=== PATIENT | female | born 1990 | race Caucasian/White ===

== ENCOUNTER 2016-02-15 08:58 | Outpatient (CLI) | payer OTHER ==
--- NOTE | 2016-02-15 09:50 | DIAGNOSTIC IMAGING REPORT ---
PROCEDURE: US ABDOMEN ULTRASOUND-LIMITED INDICATION: CHRONIC HEP C TECHNIQUE: Kaufman scale and color Doppler sonographic images of the abdomen were obtained. COMPARISON: None. FINDINGS: Liver measures 14.6 cm with normal echo structure and no evidence of a mass or ascites. Normal pancreas, gallbladder and CBD (2.3 mm). Aorta and IVC are patent. Normal hepatopetal flow in the portal vein. Normal right kidney measures 10.8 cm. IMPRESSION: 1. Normal right upper quadrant ultrasound
== END 2016-02-15 23:00 ==
LOC: US SRH 08:58
DX: B18.2 Chronic viral hepatitis C (principal)